=== PATIENT | female | born 1960 | race Caucasian/White ===

== ENCOUNTER 2017-02-06 12:53 | Emergency (ER) | payer BC ==
[2017-02-06 13:08] VITALS: BP 136/103
--- NOTE | 2017-02-06 13:36 | EDM.PDOC ---
[id number] 4d LEFT SHOULDER PAIN Time Seen by Provider: 02/06/17 13:20 Source: Reports: Patient History Limitations: Reports: No limitations - History of Present Illness INITIAL COMMENTS - FREE TEXT/NARRATIVE: 56-year-old female with intense anterior left shoulder pain for the past 3 days. No specific injury. She is unable to raise her arm without intense anterior pain. No swelling or redness. Pain started 3 days ago, no previous problems. 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: - Infectious Disease History Infectious Disease History: Reports: Chicken pox, Influenza - Past Surgical History GI Surgical History: Reports: Other (see below) Other GI Surgeries/Procedures: Lap Banding Social & Family History - Family History Family Medical History: Unobtainable - Tobacco Use Smoking Status *Q: Never Smoker Second Hand Smoke Exposure: No - Recreational Drug Use Recreational Drug Use: No Review of Systems - Review of Systems Review Of Systems: See Below Constitutional: Denies: fever Respiratory: Denies: Shortness of Breath, Cough Cardiovascular: Denies: chest pain, palpitations GI/Abdominal: Denies: Nausea, Vomiting Musculoskeletal: Denies: neck pain Skin: Reports: no symptoms Neurological: Reports: Other (No numbness or paresthesia of the arm) Trauma Exam - Physical Exam Exam: See Below Exam Limited By: No limitations General Appearance: Reports: alert, no apparent distress (She does have mild distress with any movement passively or actively of the left shoulder) Head: Reports: atraumatic Respiratory Exam: Reports: no respiratory distress Extremities: Reports: other (Patient has exquisite tenderness to palpation of the anterior shoulder underneath the a.c. joint. She has intense pain to the anterior shoulder into the upper anterior bicep with abduction of the arm passively.) Course - Vital Signs Last Recorded V/S: Last Vital Signs Temp 97.6 F 02/06/17 13:06 Pulse 89 02/06/17 13:06 Resp 14 02/06/17 13:06 BP 136/103 H 02/06/17 13:06 Pulse Ox 96 02/06/17 13:06 - Orders/Labs/Meds Orders: Active Orders 24 hr Category Date Time Status Shoulder Comp Lt [CR] Stat Exams 02/06/17 13:31 Taken DME for Discharge [COMM] Stat Oth 02/06/17 14:03 Ordered Meds: Medications Discontinued Medications Generic Name Dose Route Start Last Admin Trade Name Freq PRN Reason Stop Dose Admin Bupivacaine HCl 5 ml 02/06/17 14:04 02/06/17 14:10 Marcaine 0.5% IARTIC 02/06/17 14:05 5 ml ONETIME ONE Administration Triamcinolone Acetonide 20 mg 02/06/17 14:03 02/06/17 14:10 Kenalog-40 INJECT 02/06/17 14:04 20 mg ASDIRECTED PRN Administration Pain (moderate 4-6) - Re-Assessments/Exams Free Text/Narrative Re-Assessment/Exam: 02/06/17 13:35 An x-ray of the left shoulder was obtained to rule out calcific tendinitis. 02/06/17 14:05 X-ray does show some shadows which could indicate early calcific tendinitis on the lateral aspect of the humeral head. 20 mg of Kenalog with 5 mL of 0.5% Marcaine was injected into the area. She had over 50% improvement in pain, could now abduct the arm to 90 but still could not pass 90. She still had a moderate amount of discomfort. I'm concerned she may have some structural damage as well. Her arm was placed in a sling and she will recheck with [facility] orthopedics tomorrow at 10:15 AM. Departure - Departure Time of Disposition: 14:22 Disposition: Home, Self-Care 01 Condition: good Clinical Impression: Calcific tendinitis of left shoulder region Instructions: Calcific Tendinitis Referrals: Augustin Castillo MD [Primary Care Provider] - Forms: ED Department Discharge Care Plan Goals: Wear sling for comfort and recheck with orthopedics with Dr. Lainez tomorrow morning at 10:15. Ibuprofen or naproxen would help. - My Orders Last 24 Hours: My Active Orders 02/06/17 13:31 Shoulder Comp Lt [CR] Stat 02/06/17 14:03 DME for Discharge [COMM] Stat - Assessment/Plan Last 24 Hours: My Active Orders 02/06/17 13:31 Shoulder Comp Lt [CR] Stat 02/06/17 14:03 DME for Discharge [COMM] Stat
[2017-02-06] MEDS ORDERED: Triamcinolone Acetonide 40 MG/ML 1 ML MDV INJECT PRN (14:03)
[2017-02-06] MEDS ORDERED: Bupivacaine 0.5% 30 ML SDV IARTIC ONE (14:04)
--- NOTE | 2017-02-07 09:04 | CR ---
Left shoulder There is normal alignment of the glenohumeral as well as AC joints. There is no evidence of fracture . There is no significant degenerative disease. There is soft tissue calcification adjacent to the g reater tuberosity. The finding is consistent with calcific tendinitis versus bursitis. Impression: 1. Tendinitis versus calcific bursitis. 2. Otherwise negative exam.
== END 2017-02-06 14:23 | disposition home or self-care (01) ==
LOC: JP.ED 12:53
DX: M75.32 Calcific tendinitis of left shoulder (principal); Z79.899 Other long term (current) drug therapy
CPT/HCPCS: 73030; 99284; J3301

== ENCOUNTER 2023-06-27 06:49 | Day surgery (SDC) | payer OTHER ==
[2023-06-27] MEDS ORDERED: Cyanocobalamin (Vitamin B12) 1,000 MCG/ML SDV IM ONE (07:00)
[2023-06-27] MEDS ORDERED: Midazolam 1 MG/ML 2 ML SDV ONE (07:14)
[2023-06-27] MEDS ORDERED: Propofol 200 MG/20 ML SDV ONE (07:14)
[2023-06-27] MEDS ORDERED: fentaNYL 50 MCG/ML SDV ONE (07:14)
[2023-06-27] MEDS ORDERED: Lactated Ringers 1,000 ML IV SCH (08:00)
[2023-06-27] MEDS ORDERED: MVI, Adult with Vitamin K 10 ML, Thiamine 200 MG, Zinc/Copper/Manganese/Selenium 1 ML i... IV ONE ×4 (09:00)
[2023-06-27] MEDS ORDERED: Glycopyrrolate 0.2 MG/ML 2 ML SDV IVPUSH ONE (09:00)
[2023-06-27 09:32] VITALS: BP 124/72; PULSE 87
== END 2023-06-27 10:06 | disposition home or self-care (01) ==
LOC: JP.SDS 06:49
PROVIDERS: ATTEND Surgery
DX: K91.89 Other postprocedural complications and disorders of digestive system (principal); K22.89 Other specified disease of esophagus; I10 Essential (primary) hypertension; E78.00 Pure hypercholesterolemia, unspecified; F32.A Depression, unspecified; E66.9 Obesity, unspecified; Z98.84 Bariatric surgery status
CPT/HCPCS: 43235; J2250; J2704; J3010; J3411; J3420; J3490; J7120

== ENCOUNTER 2023-08-29 07:58 | Day surgery (SDC) | payer OTHER ==
[~2023-08-29 07:58] MED LIST: Midazolam 1 MG/ML 2 ML SDV ONE; Propofol 200 MG/20 ML SDV ONE; fentaNYL 100 MCG/2 ML SDV ONE
[2023-08-29] MEDS ORDERED: Lactated Ringers 1,000 ML IV SCH (08:30)
[2023-08-29 10:35] VITALS: BP 149/80; PULSE 64
== END 2023-08-29 10:38 | disposition home or self-care (01) ==
LOC: JP.SDS 07:58
PROVIDERS: ATTEND Student in an Organized Health Care Education/Training Program
DX: Z12.11 Encounter for screening for malignant neoplasm of colon (principal); D12.0 Benign neoplasm of cecum; K63.5 Polyp of colon; K57.30 Diverticulosis of large intestine without perforation or abscess without bleeding; I10 Essential (primary) hypertension; K21.9 Gastro-esophageal reflux disease without esophagitis; F32.A Depression, unspecified; Z87.891 Personal history of nicotine dependence; Z79.899 Other long term (current) drug therapy
CPT/HCPCS: J2250; J2704; J3010; J7120